=== PATIENT | female | born 1980 | race Caucasian/White ===

== ENCOUNTER 2016-09-25 17:20 | Outpatient (CLI) | payer OTHER ==
[~2016-09-25] VITALS: Ht 142.2 cm; Wt 57.9 kg
[~2016-09-25 17:20] MED LIST: ACET500C5 PO; NITR-58 PO
[2016-09-25 17:30] VITALS: BP 104/64; PULSE 64; Ht 142.2 cm; Wt 57.9 kg
[2016-09-25] MEDS ORDERED: PRENAT PO (17:31)
--- NOTE | 2016-09-25 18:38 | RADRPT ---
PROCEDURE: US OB biophysical profile. CLINICAL INDICATION: decreased movements, GDM TECHNIQUE: Multiple sonographic images of the pelvis were obtained. The images were reviewed on a PACS workstation. COMPARISON: 02/23/2016 FINDINGS: There is a single viable intrauterine gestation. Cardiac activity is present with 138 beats per min [place]. There is a vertex presentation. The placenta is anterior. There is no evidence of placental abruption. There is a slightly decreased amount of amniotic fluid with an LUCINDA = 7.8 cm. Biophysical profile: movement 2/2 tone 2/2. breathing 2/2 LUCINDA 2/2 Total 01/19 RPTAT: AA . IMPRESSION: Normal biophysical profile. Borderline decreased LUCINDA. . .Segundo Goodman MD, Date Time Electronically viewed and signed by .Segundo Goodman MD, MD on 09/25/2016 18:38 .S/
--- NOTE | 2016-09-25 21:16 | PN ---
Date/Time of Note Date/Time of Note DATE: 09/25/16 TIME: 21:11 OB Subjective Subjective Subjective Patient sent for NST/BPP for diabtes good FM, no VB, no LOF, no ctx OB Objective Objective Objective 104/64, 64, 18, 98 Abdomen- gravid, n/t SVE- 1/ 50/-2 FHT- Cat I [place]- no ctx Abdomen: WNL Cervical Dilatation: 1cm Effacement: 50% Station: -2 Membranes: Intact Accelerations: Accelerations Present Decelerations: No Decelerations Varibility: Moderate Intensity: Mild OB Assessment/Plan Other Assessment: reassuring status; BPP 8/8 LUCINDA 7.8 Other plan: f/u in [address] Rocha for repeat BPP/NST AMBAR HARRINGTON MD Sep 25, 2016 21:16
--- NOTE | 2016-09-25 21:20 | TRIAGE ---
OB Triage Datetime Report Generated by CPN: 09/25/2016 21:19 Datetime: 09/25/2016 20:18 Stage of : OB Triage Labor Evaluation Frequency: Irregular Monitor Mode: External Duration (sec)2399: 40-140 Quality: Mild Pattern: Normal: <= 5 Contractions in 10 Minutes Resting Tone [place]: Relaxed Heart Rate FHR Baseline Rate: 140 Monitor Mode: External US Variability: Moderate 6-25 bpm Accelerations: 15X15 Decelerations: None Category: Category I Datetime: 09/25/2016 20:12 Stage of : OB Triage Datetime: 09/25/2016 19:46 Stage of : OB Triage Datetime: 09/25/2016 19:30 Stage of : OB Triage Labor Evaluation Frequency: Irregular Monitor Mode: External Duration (sec)2399: 40-120 Quality: Mild Pattern: Normal: <= 5 Contractions in 10 Minutes Resting Tone [place]: Relaxed Heart Rate FHR Baseline Rate: 135 Monitor Mode: External US Variability: Moderate 6-25 bpm Accelerations: 15X15 Decelerations: None Category: Category I Datetime: 09/25/2016 19:19 Stage of : OB Triage Assessment Type: Triage Maternal Assessment Level of Consciousness: Fully Conscious DTR's/Clonus: DTRs 2+; No Clonus Headache: Temporal; Unilateral (Annotations: Left side) Blurred Vision: No Respiratory Effort: Unlabored; Regular Rhythm; Equal Expansion Breath Sounds, Left: Clear and Equal Breath Sounds, Right: Clear and Equal Nausea/Vomiting: Denies RUQ Epigastric Pain: Denies Lower Extremities Edema: None Degree: None Upper Extremities Edema: None Degree: None Facial Edema: None Temperature Route: Oral Bedside Blood Glucose: 121 Fall Risk Assessment History of Falling: (0) No Secondary Diagnosis: (0) No Ambulatory Aid: (0) Bedrest/Nurse Assist IV Therapy: (0) No Gait: (0) Normal/Bedrest/Immobile Mental Status: (0) Oriented to Own Ability Fall Score: 0 Fall Risk Score Definition: No Risk: No action required Pain Assessment Pain Scale: 2 Pain Presence: Intermittent Pain Type: Cramping Pain Location: Abdomen Pain Relief Measures: Comfort Measures Datetime: 09/25/2016 17:50 Vaginal Exam Dilatation (cms): 1.0 Effacement (%): 50 Station: -2 Vaginal Bleeding: None Cervix, Consistency: Soft Cervix, Position: Posterior Presentation 'A': Cephalic Datetime: 09/25/2016 17:27 Stage of : OB Triage Assessment Type: Triage Maternal Assessment Level of Consciousness: Fully Conscious DTR's/Clonus: DTRs 2+; No Clonus Headache: Denies Blurred Vision: No Respiratory Effort: Unlabored; Regular Rhythm; Equal Expansion Breath Sounds, Left: Clear and Equal Breath Sounds, Right: Clear and Equal Nausea/Vomiting: Denies RUQ Epigastric Pain: Denies Facial Edema: None Temperature Route: Axillary Fall Risk Assessment History of Falling: (0) No Secondary Diagnosis: (0) No Ambulatory Aid: (0) Bedrest/Nurse Assist IV Therapy: (0) No Gait: (0) Normal/Bedrest/Immobile Mental Status: (0) Oriented to Own Ability Fall Score: 0 Fall Risk Score Definition: No Risk: No action required Monitor Mode: External Resting Tone [place]: Relaxed Heart Rate FHR Baseline Rate: 135 Monitor Mode: External US Variability: Moderate 6-25 bpm Accelerations: 10X10 Decelerations: None Category: Category I Pain Assessment Pain Scale: 0 Pain Presence: None/Denies Pain Goal: 3 Pain Relief Measures: Comfort Measures Datetime: 09/25/2016 17:26 EGA: 36.6 Datetime: 09/25/2016 17:25 Time of Arrival: 09/25/2016 17:10 Arrived By: Ambulatory Arrived From: Dr. Tate Chief Complaint: SENT IN FROM OFFICE FOR NST/BPP, VE, GDM AT 36 WEEKS Movement: Present Contractions: Denies/Absent Rupture of Membranes: Denies Vaginal Bleeding: None Vaginal Discharge: Denies Recent Sexual Intercouse: Denies Abdominal Trauma: Not Applicable Patient Complaints: None Time Provider Notified: 09/25/2016 19:46 Provider Notified: Initial Plan: NST/BPP, VE
== END 2016-09-25 20:28 | disposition home or self-care (01) ==
LOC: OBT 17:20 → L-D 17:21 → OBT 20:28
PROVIDERS: ATTEND Obstetrics & Gynecology
DX: O24.419 Gestational diabetes mellitus in pregnancy, unspecified control (principal); Z3A.36 36 weeks gestation of pregnancy
CPT/HCPCS: 76818; 82962; Z7500; G0463

== ENCOUNTER 2016-09-27 09:21 | Inpatient (IN) | payer OTHER ==
[~2016-09-27] VITALS: Ht 142.2 cm; Wt 58.1 kg
[~2016-09-27 09:21] MED LIST changes: -ACET500C5 PO; -NITR-58 PO; +PRENAT PO
--- NOTE | 2016-09-27 09:41 | RADRPT ---
PROCEDURE: OB ultrasound for biophysical profile. CLINICAL INDICATION: tachycardia. TECHNIQUE: Multiple sonographic images of the pelvis were obtained. Transabdominal view of the gr avid uterus are available for review. COMPARISON: None. FINDINGS: breathing movement = 2/2 tone = 2/2 motion = 2/2 LUCINDA = 6.7 cm Single live intrauterine with cardiac activity (148 beats per minute). IMPRESSION: 1. Single viable intrauterine gestation. 2. Biophysical profile = 8/8. 3. LUCINDA = 6.7 cm, which is at the lower limits of normal. RPTAT: EE .Pacheco Hastings MD, MD Date Time Electronically viewed and signed by .Pacheco Hastings MD, MD on 09/27/2016 09:45 .C/
[2016-09-27 10:07] VITALS: BP 110/72; PULSE 82; Ht 142.2 cm; Wt 58.1 kg
[2016-09-27] MEDS: DEXTROSE 5%-LR 1,000 ML IV SCH ×3 (12:04→22:59)
[2016-09-27] MEDS: LACTATED RINGER'S 1,000 ML IV SCH ×4 (12:23→20:04)
[2016-09-27] MEDS ORDERED: OXYTOCIN 30 UNITS/LR 500 ML IV SCH ×3 (12:30→21:00)
[2016-09-27] MEDS ORDERED: LIDOCAINE 1% (MPF) 30 ML INJ INJ PRN (12:30)
[2016-09-27] MEDS ORDERED: OXYTOCIN 30 UNITS/LR 500 ML IV PRN (12:30)
[2016-09-27] MEDS ORDERED: LACTATED RINGER'S 1,000 ML IV PRN (12:30)
[2016-09-27] MEDS ORDERED: MISOPROSTOL 200 MCG TAB PR PRN (12:30)
[2016-09-27] MEDS ORDERED: CARBOPROST 250 MCG INJ IM PRN (12:30)
[2016-09-27] MEDS ORDERED: METHYLERGONOVINE 0.2 MG INJ IM PRN (12:30)
[2016-09-27 12:43] LABS: ADD SCAN DIFF NO
[2016-09-27 12:44] LABS: BASOPHILS % 0.2 % (0.0-2.0); EOSINOPHILS # 0.1 10^3/ul (0.0-0.5); EOSINOPHILS % 0.7 % (0.0-7.0); HEMOGLOBIN 13.9 g/dl (12.0-16.0); LYMPHOCYTES # 1.7 10^3/ul (0.8-2.9); LYMPHOCYTES % 19.2 % (15.0-51.0); MEAN CORPUSCULAR HEMOGLOBIN 33.5 pg (29.0-33.0); MEAN CORPUSCULAR HGB CONC 34.8 g/dl (32.0-37.0); MEAN CORPUSCULAR VOLUME 96.4 fl (82.0-101.0); MONOCYTE # 0.5 10^3/ul (0.3-0.9); MONOCYTES % 5.8 % (0.0-11.0); NEUTROPHIL # 6.4 10^3/ul (1.6-7.5); NEUTROPHILS % 73.4 % (39.0-77.0); PLATELET COUNT 191 10^3/UL (140-415); RED BLOOD COUNT 4.15 10^6/ul (4.20-5.40); RED CELL DISTRIBUTION WIDTH 12.8 % (11.5-14.5); WHITE BLOOD COUNT 8.8 10^3/ul (4.8-10.8)
[2016-09-27 12:56] LABS: INR 0.9; PROTIME 12.1 Sec (12.2-14.2); PT RATIO 0.9
[2016-09-27 12:57] LABS: PARTIAL THROMBOPLASTIN TIME 28.8 Sec (25.0-35.0)
--- NOTE | 2016-09-27 20:21 | HP ---
Date/Time of Note Date/Time of Note DATE: 09/27/16 TIME: 20:16 OB - History Hx of Present Free Text/Dictation @37+wks GA GDM admitted to L&D Admitted in early labor,Case D/w Perinatalogist and she adviced that delivery is recommended if the patient made cervical change. As the patient is progressed from 1 cm to 3/90/-1 Heavy Bloody show The decision is made to Augment the labor : 2 Para: 1 Care: Good Care Ultrasounds: Normal mid trimester US Obstetrical Complications: None Medical Complications: None Past Family/Social History * Past Medical, Surgical, Family and Obstetric Histories reviewed from chart. OB Admission Exam Vital Signs Vital Signs Vital Signs Date Time Temp Pulse Resp B/P Pulse Ox O2 Delivery O2 Flow Rate FiO2 09/27/16 10:07 98.3 82 110/72 Physical Exam Abdomen: WNL Extremities: Normal Cervical Dilatation: 3cm Effacement: 75% Station: -1 Membranes: Intact Heart Rate: 140's Accelerations: Accelerations Present Decelerations: No Decelerations Varibility: Moderate Contractions on Admission: 6-10 Minutes Apart Last 72 hourBlood Glucose Bedside Glucose - 72 Hours Test 09/27/16 10:06 Bedside Glucose 104mg/dL (70-220) Last 72 hours Lab Results CBC & BMP 09/27/16 12:25 OB Assessment/Plan Reason for admission: observation Plan: Expectant Management CHERYL MARQUES M.D. Sep 27, 2016 20:20
[2016-09-27] MEDS ORDERED: FENTAnyl 2MCG/ML-ROPIV 0.2% 100 ML ONE (23:44)
[2016-09-28] MEDS: LACTATED RINGER'S 1,000 ML IV SCH ×6 (00:09→20:04)
[2016-09-28] MEDS ORDERED: NALOXONE (0.4 MG/ML) INJ IV PRN ×2 (00:30→06:00)
[2016-09-28] MEDS ORDERED: DIPHENHYDRAMINE 50 MG INJ IV PRN ×2 (00:30→06:00)
[2016-09-28] MEDS ORDERED: ONDANSETRON 4 MG INJ IV PRN ×2 (00:30→06:00)
[2016-09-28] MEDS: DEXTROSE 5%-LR 1,000 ML IV SCH ×2 (02:13→20:04)
[2016-09-28] MEDS ORDERED: FENTAnyl 2MCG/ML-ROPIV 0.2% 100 ML BAG EPI SCH (06:00)
--- NOTE | 2016-09-28 07:56 | QN ---
Documentation Comment Called By Shashi Jeronimo Nurse @7AM to reevaluate the Patient as She feels that she should not be on Pitocin and needs to be discharged, @37+wks GA GDM admitted with Low LUCINDA 6.7 cm Variables,Heavy Bloody show and Cervical change from 1cm to3cm(same examiner) patient had cathegory 2 \tracing early this morning and currently the tracing is reassuring CX exam 3cm/80/-1 Bloody show ---->Repeat BPP --->called Perinatalogist,for a consult , --->If the patient is cleared from Perinatalogy,she could be discharged and return to clinic in 2 days for NST BPP CHERYL MARQUES M.D. Sep 28, 2016 07:55
--- NOTE | 2016-09-28 08:32 | RADRPT ---
PROCEDURE: US OB. CLINICAL INDICATION: Size and dates TECHNIQUE: Multiple sonographic images of the pelvis and gravid uterus were obtained. The images were reviewed on a PACS workstation. COMPARISON: 09/27/2016 FINDINGS: There is a single viable intrauterine gestation. Cardiac activity is present with 129 beats per min [place]. There is a vertex presentation. The placenta is anterior. There is no evidence for an abruption or placenta previa. Measurements were made in order to determine age. The results are as follows: BPD =9.1 cm HC =32.2 cm AC =32 cm FL =6.7 cm Estimated gestational age of approximately 35 weeks and 6 days based on ultrasound measurements. Clinical age: 37 weeks and 1 day. The estimated date of delivery is 10/27/16, based on ultrasound measurements. The EFW = 2738 g, 20%, based on LMP age. RPTAT: AA IMPRESSION: Single viable intrauterine gestation of approximately 35 weeks and 6 days based on ultrasound measu rements. .Segundo Goodman MD, MD Date Time Electronically viewed and signed by .Segundo Goodman MD, on 09/28/2016 08:32 .S/
--- NOTE | 2016-09-28 08:42 | RADRPT ---
PROCEDURE: US OB biophysical profile. CLINICAL INDICATION: decreased movements, size and dates TECHNIQUE: Multiple sonographic images of the pelvis were obtained. The images were reviewed on a PACS workstation. COMPARISON: Yesterday FINDINGS: There is a single viable intrauterine gestation. Cardiac activity is present with 135 beats per min [place]. There is a vertex presentation. The placenta is anterior. There is no evidence of placental abruption. There is a normal amount of amniotic fluid with an LUCINDA = 10.4 cm. Biophysical profile: movement 2/2 tone 2/2. breathing 2/2 LUCINDA 2/2 Total 01/19 RPTAT: AA . IMPRESSION: Normal biophysical profile. . .Segundo Goodman MD, MD Date Time Electronically viewed and signed by .Segundo Goodman MD, on 09/28/2016 08:42 .S/
[2016-09-28] MEDS: FENTAnyl 2MCG/ML-ROPIV 0.2% 100 ML BAG EPI SCH ×2 (10:36→18:02)
--- NOTE | 2016-09-28 20:51 | QN ---
Documentation Comment Called By Marquita ,Charged Nurse @ around 11-12 Am,The patient is seen by , Perinatalogist and delivery is recommended CHERYL MARQUES M.D. Sep 28, 2016 20:51
[2016-09-28] MEDS ORDERED: AMPICILLIN 2 GM/NS (PMX) 100 ML ONE (23:13)
[2016-09-28] MEDS ORDERED: AMPICILLIN 2 GM/NS (PMX) 100 ML IV ONE (23:30)
[2016-09-28] MEDS ORDERED: ACETAMINOPHEN 500 MG TAB PO STA (23:56)
--- NOTE | 2016-09-28 23:56 | LDN ---
Date/Time of Note Date/Time of Note DATE: 09/28/16 TIME: 23:55 Delivery Summary Placenta Delivered: Spontaneously Meconium: Light Anesthesia type: Epidural Estimated blood loss: 200 Sponge & Needle done & correct: Yes All needle counts correct: Yes Any foreign bodies felt in the: No Problems: CHERYL MARQUES M.D. Sep 28, 2016 23:56
--- NOTE | 2016-09-29 01:21 | DELSUM ---
Delivery Summary A-C Datetime Report Generated by CPN: 09/29/2016 01:21 DELIVERY PERSONNEL Organic Gardening Teacher: Long, Felicitas MATERNAL INFORMATION Delivery Anesthesia: Epidural Medications in Delivery: OXYTOCIN Estimated Blood Loss (ml): 200 Placenta Cultured: No Maternal Complications: Other Other Maternal Complications: GDM DIET CONTROLLED RN Comments: LIGHT MECONIUM, TACHYCARDIA, MATERNAL TEMP 100.3F ORAL BEFORE DELIVERY AND 99.8F ORAL JUST BEFORE DELIVERY LABOR SUMMARY EDC: 10/18/2016 00:00 No. Babies in Womb: 1 Attempted: No Labor Anesthesia: Epidural LABOR INFORMATION Reason for Induction: Not Applicable Oxytocin: Augmentation Group B Beta Strep: Negative Group B Beta Strep: Negative Antibiotics # of Doses: 1 Antibiotics Time of Last Dose: 09/28/2016 23:28 Steroids Given: None Reason Steroids Not Administered: Not Applicable [place]ANES Membranes Rupture Method: Spontaneous Rupture of Membranes: 09/28/2016 10:20 Length of Rupture (hr): 13.42 Amniotic Fluid Color: Light Meconium Amniotic Fluid Color: Clear Amniotic Fluid Amount: Small Amniotic Fluid Amount: Large Amniotic Fluid Odor: None STAGES OF LABOR Stage 3 hr: 0 Stage 3 min: -16 VAGINAL DELIVERY Episiotomy: None Laceration Extension: N/A Laceration Type: None Laceration Repair: No Initial Vag Sponge Count: 10 Final Vag Sponge Count: 10 Initial Vag Sharps Count: 1 Final Vag Sharps Count: 1 Sponge Count Correct: Yes Sharps Count Correct: Yes BABY A INFORMATION Infant Delivery Date/Time: 09/28/2016 23:45 Method of Delivery: Vaginal Born in Route : No : N/A Forceps: N/A Vacuum Extraction: N/A Shoulder Dystocia : N/A SHOULDER DYSTOCIA BABY A Delivery Date/Time: 09/28/2016 23:45 PRESENTATION/POSITION BABY A Presentation: Cephalic Cephalic Presentation: Vertex Vertex Position: Left Occipital Anterior Breech Presentation: N/A PLACENTA INFORMATION BABY A Placenta Delivery Time : 09/28/2016 23:29 Placenta Method of Delivery: Spontaneous Placenta Status: Delivered SCORES BABY A Heart Rate 1 min: >100 bpm Resp Effort 1 min: Good Cry Reflex Irritability 1 min: Cough/Sneeze/Pulls Away Muscle Tone 1 min: Active Motion Color 1 min: Blue/Pale Resuscitation Effort 1 min: Tactile Stimulation SCORE 1 MIN: 8 Heart Rate 5 min: >100 bpm Resp Effort 5 min: Good Cry Reflex Irritability 5 min: Cough/Sneeze/Pulls Away Muscle Tone 5 min: Active Motion Color 5 min: Body [place], Extremit Blue Resuscitation Effort 5 min: Tactile Stimulation SCORE 5 MIN: 9 INFORMATION BABY A Gestational Age at Delivery: 37.1 Gestational Status: Early Term- 37- 38.6 Weeks Outcome : Liveborn Condition : Stable Infant Sex: Male IDENTIFICATION/MEDS BABY A ID Band Number: [id number] ID Band Location: Right Leg; Left Arm Sensor Applied: Yes Sensor Number: [id number] Sensor Location : Cord Clamp Vitamin K Given : Not Given Erythromycin Given: Not Given WEIGHT/LENGTH BABY A Birthweight (gm): 2905 Weight (lb): 6 Infant Weight (oz): 6 Infant Length (in): 19.50 Infant Length (cm): 49.53 CORD INFORMATION BABY A No. Cord Vessels: 3 Nuchal Cord : N/A Cord Blood Taken: Yes Infant Suction: Mouth; Nose ASSESSMENT BABY A Complications: None Physical Findings at Delivery: Within Normal Limits Respirations: Appears Normal Clinical Recruiter/ALS Called : No Infant Care By: NICU TEAM AND Diana THOMPSON RN Transferred To: Remains with Mother
[2016-09-29 02:30] VITALS: BP 110/62; PULSE 84; RESP 18
[2016-09-29] MEDS ORDERED: LACTATED RINGER'S 1,000 ML IV* SCH (02:59)
[2016-09-29] MEDS ORDERED: LANOLIN 7 GM TUBE TOP PRN (03:00)
[2016-09-29] MEDS ORDERED: METHYLERGONOVINE 0.2 MG INJ IM PRN (03:00)
[2016-09-29] MEDS ORDERED: SENNA/DOCUSATE NA (8.6MG/50MG) TAB PO PRN (03:00)
[2016-09-29] MEDS ORDERED: WITCH HAZEL/GLYCERIN PAD PR PRN (03:00)
[2016-09-29] MEDS ORDERED: BENZOCAINE 20% 56 ML SPRAY TOP PRN (03:00)
[2016-09-29] MEDS ORDERED: ZOLPIDEM 5 MG TAB PO PRN (03:00)
[2016-09-29] MEDS ORDERED: CARBOPROST 250 MCG INJ IM PRN (03:00)
[2016-09-29] MEDS ORDERED: OXYCODONE/ASPIRIN (4.88/325) TAB PO PRN (03:00)
[2016-09-29] MEDS ORDERED: OXYTOCIN 30 UNITS/LR 500 ML IV PRN (03:00)
[2016-09-29] MEDS ORDERED: MISOPROSTOL 200 MCG TAB PR PRN (03:00)
[2016-09-29] MEDS ORDERED: AMPICILLIN 1 GM/NS (PMX) 50 ML IV SCH (03:30)
[2016-09-29] MEDS: IBUPROFEN 600 MG TAB PO SCH ×4 (05:56→23:47)
[2016-09-29] MEDS: CEFAZOLIN 1 GM/50 ML (PMX) 50 ML IV SCH ×3 (05:56→22:05)
[2016-09-29 08:00] VITALS: BP 104/54; PULSE 78; RESP 18
[2016-09-29 08:12] LABS: ADD SCAN DIFF NO
[2016-09-29 08:19] LABS: BASOPHILS % 0.2 % (0.0-2.0); EOSINOPHILS % 0.1 % (0.0-7.0); HEMATOCRIT 37.1 % (37.0-47.0); HEMOGLOBIN 12.6 g/dl (12.0-16.0); LYMPHOCYTES # 1.2 10^3/ul (0.8-2.9); LYMPHOCYTES % 10.3 % (15.0-51.0); MEAN CORPUSCULAR HEMOGLOBIN 32.9 pg (29.0-33.0); MEAN CORPUSCULAR VOLUME 96.9 fl (82.0-101.0); MEAN PLATELET VOLUME 10.5 fl (7.4-10.4); MONOCYTE # 0.5 10^3/ul (0.3-0.9); MONOCYTES % 4.2 % (0.0-11.0); NEUTROPHIL # 10.1 10^3/ul (1.6-7.5); NEUTROPHILS % 84.7 % (39.0-77.0); PLATELET COUNT 154 10^3/UL (140-415); RED BLOOD COUNT 3.83 10^6/ul (4.20-5.40); RED CELL DISTRIBUTION WIDTH 12.9 % (11.5-14.5); WHITE BLOOD COUNT 11.9 10^3/ul (4.8-10.8)
[2016-09-29] MEDS: SENNA/DOCUSATE NA (8.6MG/50MG) TAB PO SCH ×2 (08:31→21:01)
[2016-09-29 12:18] VITALS: BP 110/62; PULSE 82; RESP 18
[2016-09-29 16:00] VITALS: BP 106/60; PULSE 68; RESP 18
--- NOTE | 2016-09-29 16:24 | QN ---
Documentation Comment PPD#1 is stable afebrile tolerates diet No VB +BM +voids VS stable Gen NAD Abd soft NT ND Incision intact Genitalia NO blood at perinium --->discharge plan tomorrow --->ambulation CHERYL MARQUES M.D. Sep 29, 2016 16:24
[2016-09-29 20:00] VITALS: BP 98/59; PULSE 78; RESP 18
[2016-09-30 04:00] VITALS: BP 99/57; PULSE 63; RESP 18
[2016-09-30] MEDS: IBUPROFEN 600 MG TAB PO SCH ×2 (05:41→12:00)
[2016-09-30 08:00] VITALS: BP_SYST 112; PULSE 65; RESP 18
[2016-09-30] MEDS ORDERED: DIPHTH/TET/ACEL PERTUSS (ADULT) 0.5 ML VIAL IM* ONE (09:00)
[2016-09-30] MEDS: SENNA/DOCUSATE NA (8.6MG/50MG) TAB PO SCH (09:00)
[2016-09-30 16:00] VITALS: BP 116/61; PULSE 61; RESP 18
== END 2016-09-30 17:41 | disposition home or self-care (01) | DRG 775 ==
LOC: OBT 09:21 → L-D 09:23 → OBT 11:58 → L-D 11:58 → MERGE 11:58 → PP1 09-29 02:25
PROVIDERS: ADMIT Obstetrics & Gynecology; ATTEND Obstetrics & Gynecology
PROC: 10E0XZZ Delivery of Products of Conception, External Approach (ICD-10-PCS; principal; 2016-09-28)
PROC: 3E00X4Z Introduction of Serum, Toxoid and Vaccine into Skin and Mucous Membranes, External Approach (ICD-10-PCS; 2016-09-30)
DX: O24.429 Gestational diabetes mellitus in childbirth, unspecified control (principal); Z23 Encounter for immunization; Z3A.37 37 weeks gestation of pregnancy; Z37.0 Single live birth
CPT/HCPCS: 62319; 76816; 76818; 82962; 85025; 85610; 85730; 86592; 86900; 86901; 87340; 90715; 99464; G0463; J0290; J0690; J2590; J3010; J7120; J7121